=== PATIENT | male | born 2000 | race Caucasian/White ===

== ENCOUNTER 2021-09-11 10:11 | Emergency (ER) | payer OTHER ==
[~2021-09-11] VITALS: Ht 180.3 cm; Wt 134.8 kg
[2021-09-11 10:19] VITALS: BP 153/84
--- NOTE | 2021-09-11 10:26 | NUR ---
PT AMBULATED TO BED 2
--- NOTE | 2021-09-11 10:33 | NUR ---
xray at bedside
--- NOTE | 2021-09-11 10:50 | NUR ---
21Y MALE BIB SELF DUE TO R WRIST PAIN S/P FALLING X1 WEEK AGO. MINOR SWELLING NOTED ON PT R HAND. CAP REFILL <2 SECONDS. PT STILL HAS FULL ROM AND SENSATION IN R WRIST. PMH: DENIES NKA
--- NOTE | 2021-09-11 11:45 | NUR ---
pt placed in fabricated 4" right sugartong splint and wrapped with 6" syd wraps x3. [facility] wnl before and after. pt also placed in right sling and Dr. Gutierrez approved splint. pt states they tolerated splint well.
[2021-09-11 12:25] VITALS: BP 137/82
--- NOTE | 2021-09-11 12:27 | NUR ---
Patient discharged with v/s stable. Written and verbal after care instructions given and explained. Patient verbalized understanding. Ambulatory with steady gait. All questions addressed prior to discharge. Advised to follow up with PMD.
== END 2021-09-11 12:25 | disposition home or self-care (01) ==
LOC: MED 10:11
DX: S52.614A Nondisplaced fracture of right ulna styloid process, initial encounter for closed fracture (principal); R03.0 Elevated blood-pressure reading, without diagnosis of hypertension; W19.XXXA Unspecified fall, initial encounter; Y93.89 Activity, other specified; Y92.89 Other specified places as the place of occurrence of the external cause; Y99.8 Other external cause status
CPT/HCPCS: 73110; 99283